=== PATIENT | female | born 1980 | race Caucasian/White ===

== ENCOUNTER 2017-02-28 11:49 | Emergency (ER) | payer OTHER | END 2017-02-28 12:52 | disposition home or self-care (01) | LOC: ER 11:49 | DX: Z76.0 Encounter for issue of repeat prescription (principal); F32.9 Major depressive disorder, single episode, unspecified; F41.9 Anxiety disorder, unspecified; Z79.899 Other long term (current) drug therapy ==

== ENCOUNTER 2017-03-02 14:10 | Emergency (ER) | payer OTHER | END 2017-03-02 14:42 | disposition home or self-care (01) | LOC: ER 14:10 | DX: Z76.0 Encounter for issue of repeat prescription (principal); F41.9 Anxiety disorder, unspecified; F32.9 Major depressive disorder, single episode, unspecified; Z79.899 Other long term (current) drug therapy ==

== ENCOUNTER 2017-03-04 08:29 | Emergency (ER) | payer OTHER | END 2017-03-04 08:53 | disposition home or self-care (01) | LOC: ER 08:29 | DX: F41.9 Anxiety disorder, unspecified (principal); Z76.0 Encounter for issue of repeat prescription; Z79.899 Other long term (current) drug therapy ==